=== PATIENT | female | born 1955 | race Caucasian/White ===

== ENCOUNTER 2019-08-09 | Emergency (ER) | payer BC ==
[2019-08-09 13:42] LABS: HEMATOCRIT 39.8 % (37.0-47.0); IMMATURE GRANULOCYTES 0.3 % (0.0-5.0); MEAN CELL VOLUME 83.1 fL CALC (80.0-100.0); MEAN CORPUSCULAR HGB 27.1 pG CALC (26.0-32.0); MEAN CORPUSCULAR HGB CONC 32.7 g/L CALC (32.0-36.0); NEUT# 7.14 thou/uL (2.00-7.15); RED BLOOD COUNT 4.79 mill/uL (4.20-5.60); RED CELL DISTRI WIDTH 14.6 % (11.5-15.5)
[2019-08-09] MEDS ORDERED: XARELTO20 MG PO (13:46)
[2019-08-09] MEDS ORDERED: HYDROCHLOROT12.5 MG PO (13:46)
[2019-08-09] MEDS ORDERED: OMEPRAZOLE20 MG PO (13:47)
[2019-08-09] MEDS ORDERED: ISOSORB MONO30 MG PO (13:47)
[2019-08-09] MEDS ORDERED: NORVASC5 M1 PO (13:48)
[2019-08-09] MEDS ORDERED: ATENOLOL25 MG PO (13:48)
[2019-08-09] MEDS ORDERED: ALTOPREV20 MG PO (13:49)
[2019-08-09] MEDS ORDERED: LISINOPRIL2.5 MG PO (13:50)
[2019-08-09 14:03] LABS: ALBUMIN 3.9 g/dL (3.2-5.0); ALKALINE PHOSPHATASE 108 u/l (38-126); ANION GAP 10 (6-22 (CALC)); BILIRUBIN, TOTAL 1.2 mg/dL (0.0-1.4); BUN 22 mg/dL (8-23); BUN/CREATININE RATIO 30 (12-20 (CALC)); CARBON DIOXIDE 28 mmol/l (22-30); CHLORIDE 104 mmol/l (95-108); CREATININE 0.8 mg/dL (0.5-1.0); GFR > 60 ML/MIN (>=60 (CALC)); GFR FOR AFR.AMER. > 60 ML/MIN (>=60 (CALC)); LIPASE 67 u/l (23-300); POTASSIUM 3.5 mmol/l (3.5-5.1); SGOT/AST 25 u/l (9-36); SODIUM 139 mmol/l (137-146); TOTAL PROTEIN 6.7 g/dL (6.3-8.2)
[2019-08-09 15:05] LABS: URINE BILIRUBIN - DIPSTICK NEGATIVE (NEGATIVE); URINE BLOOD DIPSTICK NEGATIVE (NEGATIVE); URINE COLOR YELLOW; URINE GLUCOSE - DIPSTICK NEGATIVE (NEGATIVE); URINE KETONE NEGATIVE (NEGATIVE); URINE LEUK ESTERASE NEGATIVE (NEGATIVE); URINE NITRITE - DIPSTICK NEGATIVE (Negative); URINE PH 6.5 (4.5-8.0); URINE PROTEIN - DIPSTICK NEGATIVE (NEG-TRACE); URINE UROBILINOGEN - DIPSTICK 0.2 E.U./dL (0.2)
[2019-08-09] MEDS ORDERED: ZOFRAN4 MG/TAB PO (15:45)
== END 2019-08-09 15:54 | disposition home or self-care (01) | DRG 392 ==
DX: K52.9 Noninfective gastroenteritis and colitis, unspecified (principal); I10 Essential (primary) hypertension

== ENCOUNTER 2021-01-18 12:00 | Emergency (ER) | payer MEDICARE ==
[~2021-01-18] VITALS: Ht 165.1 cm; Wt 85.0 kg
[~2021-01-18 12:00] MED LIST: ALTOPREV20 MG PO; ATENOLOL25 MG PO; HYDROCHLOROT12.5 MG PO; ISOSORB MONO30 MG PO; LISINOPRIL2.5 MG PO; NORVASC5 M1 PO; OMEPRAZOLE20 MG PO; XARELTO20 MG PO; ZOFRAN4 MG/TAB PO
[2021-01-18] MEDS ORDERED: EPIPEN 2-P0.3 MG/0.3 SC (15:19)
[2021-01-18] MEDS ORDERED: MEDDOSEPAK PO (15:19)
[2021-01-18] MEDS ORDERED: PEPCID20 MG PO (15:20)
[2021-01-18 15:31] VITALS: BP 100/50
[2021-01-18] MEDS ORDERED: BENADRYL 25MG C25 MG PO (19:28)
[2021-01-18] MEDS ORDERED: PREDNISONE20 MG PO (20:35)
== END 2021-01-18 15:40 | disposition home or self-care (01) ==
LOC: ED 12:00
DX: T63.461A Toxic effect of venom of wasps, accidental (unintentional), initial encounter (principal); L50.8 Other urticaria; I10 Essential (primary) hypertension; I20.9 Angina pectoris, unspecified; K21.9 Gastro-esophageal reflux disease without esophagitis; T78.40XA Allergy, unspecified, initial encounter; K13.0 Diseases of lips; T78.3XXA Angioneurotic edema, initial encounter

== ENCOUNTER 2021-01-18 18:55 | Emergency (ER) | payer MEDICARE ==
[~2021-01-18] VITALS: Ht 165.1 cm; Wt 111.3 kg
[~2021-01-18 18:55] MED LIST changes: +EPIPEN 2-P0.3 MG/0.3 SC; +MEDDOSEPAK PO; +PEPCID20 MG PO
[2021-01-18] MEDS ORDERED: BENADRYL 25MG C25 MG PO (19:28)
[2021-01-18] MEDS ORDERED: PREDNISONE20 MG PO (20:35)
[2021-01-18 20:50] VITALS: BP 129/72
== END 2021-01-18 20:54 | disposition home or self-care (01) ==
LOC: ED 18:55
DX: T63.461A Toxic effect of venom of wasps, accidental (unintentional), initial encounter (principal); T78.3XXA Angioneurotic edema, initial encounter; I10 Essential (primary) hypertension; I20.9 Angina pectoris, unspecified; K21.9 Gastro-esophageal reflux disease without esophagitis

== ENCOUNTER 2021-12-09 11:00 | Emergency (ER) | payer MEDICARE ==
[~2021-12-09] VITALS: Ht 165.1 cm; Wt 105.0 kg
[2021-12-09] VITALS (7 sets, daily range): BP systolic 100–129; BP diastolic 64–84
[~2021-12-09 11:00] MED LIST changes: +BENADRYL 25MG C25 MG PO; +PREDNISONE20 MG PO
[2021-12-09] MEDS ORDERED: AMOX/K CLAV875 M1 PO (11:49)
== END 2021-12-09 13:04 | disposition home or self-care (01) ==
LOC: ED 11:00
PROC: 3E0234Z Introduction of Serum, Toxoid and Vaccine into Muscle, Percutaneous Approach (ICD-10-PCS; principal; 2021-12-09)
DX: S61.452A Open bite of left hand, initial encounter (principal); I10 Essential (primary) hypertension; K21.9 Gastro-esophageal reflux disease without esophagitis; W55.01XA Bitten by cat, initial encounter; Z29.14 Encounter for prophylactic rabies immune globulin; Z23 Encounter for immunization

== ENCOUNTER 2021-12-12 10:42 | Emergency (ER) | payer MEDICARE ==
[~2021-12-12] VITALS: Ht 162.6 cm; Wt 105.2 kg
[~2021-12-12 10:42] MED LIST changes: +AMOX/K CLAV875 M1 PO
[2021-12-12 11:02] VITALS: BP 128/78
[2021-12-12 11:43] VITALS: BP 128/78
== END 2021-12-12 11:49 | disposition home or self-care (01) ==
LOC: ED 10:42
PROC: 3E0234Z Introduction of Serum, Toxoid and Vaccine into Muscle, Percutaneous Approach (ICD-10-PCS; principal; 2021-12-12)
DX: Z23 Encounter for immunization (principal); T14.8XXD Other injury of unspecified body region, subsequent encounter; W55.01XD Bitten by cat, subsequent encounter; K21.9 Gastro-esophageal reflux disease without esophagitis; I10 Essential (primary) hypertension

== ENCOUNTER 2022-01-26 20:26 | Emergency (ER) | payer MEDICARE ==
[2022-01-26] VITALS (8 sets, daily range): BP systolic 122–138; BP diastolic 61–81
[~2022-01-26] VITALS: Ht 162.6 cm; Wt 103.1 kg
[2022-01-26 21:25] LABS: HEMATOCRIT 41.1 % (37.0-47.0); HEMOGLOBIN 13.4 g/dl (12.0-16.0); IMMATURE GRANULOCYTES 0.2 % (0.0-5.0); MEAN CELL VOLUME 85.4 fL CALC (80.0-100.0); MEAN CORPUSCULAR HGB 27.9 pG CALC (26.0-32.0); MEAN CORPUSCULAR HGB CONC 32.6 g/dL CAL (32.0-36.0); NEUT# 6.25 thou/uL (2.00-7.15); RED BLOOD COUNT 4.81 mill/uL (4.20-5.60); RED CELL DISTRI WIDTH 14.1 % (11.5-15.5)
[2022-01-26 21:36] LABS: ALBUMIN 4.3 g/dL (3.2-5.0); ALKALINE PHOSPHATASE 97 u/l (38-126); ANION GAP 13 (6-22 (CALC)); BILIRUBIN, TOTAL 0.5 mg/dL (0.0-1.4); BUN 19 mg/dL (8-23); BUN/CREATININE RATIO 19 (12-20 (CALC)); CARBON DIOXIDE 29 mmol/l (22-30); CHLORIDE 103 mmol/l (95-108); GFR FOR AFR.AMER. > 60 ML/MIN (>=60 (CALC)); GFR OTHER RACES 55 ML/MIN (>=60 (CALC)); POTASSIUM 3.3 mmol/l (3.5-5.1); SGOT/AST 25 u/l (9-36); SODIUM 142 mmol/l (137-146); TOTAL PROTEIN 7.3 g/dL (6.3-8.2)
[2022-01-26 21:41] LABS: URINE BILIRUBIN - DIPSTICK NEGATIVE (NEGATIVE); URINE BLOOD DIPSTICK NEGATIVE (NEGATIVE); URINE COLOR YELLOW; URINE GLUCOSE - DIPSTICK NEGATIVE (NEGATIVE); URINE KETONE NEGATIVE (NEGATIVE); URINE LEUK ESTERASE NEGATIVE (NEGATIVE); URINE PH 6.5 (4.5-8.0); URINE PROTEIN - DIPSTICK NEGATIVE (NEG-TRACE); URINE SPECIFIC GRAVITY <=1.005; URINE UROBILINOGEN - DIPSTICK 0.2 E.U./dL (0.2)
[2022-01-26 21:42] LABS: URINE NITRITE - DIPSTICK NEGATIVE (Negative)
[2022-01-26 21:48] LABS: MYOGLOBIN 41 ng/mL (0 - 62)
== END 2022-01-26 23:02 | disposition home or self-care (01) ==
LOC: ED 20:26
PROVIDERS: Emergency Medicine
DX: R00.2 Palpitations (principal); I10 Essential (primary) hypertension; K21.9 Gastro-esophageal reflux disease without esophagitis; Z86.718 Personal history of other venous thrombosis and embolism